=== PATIENT | female | born 1955 | race Caucasian/White ===

== ENCOUNTER → 2018-08-19 | Outpatient (CLI) | payer MEDICARE | END | disposition home or self-care (01) | LOC: RAH 10:25 | PROVIDERS: ATTEND Physical Medicine & Rehabilitation | DX: R60.0 Localized edema (principal); N88.8 Other specified noninflammatory disorders of cervix uteri; D49.9 Neoplasm of unspecified behavior of unspecified site | CPT/HCPCS: 72195 ==

== ENCOUNTER → 2018-09-21 | Outpatient (CLI) | payer MEDICARE | END | disposition home or self-care (01) | LOC: RAH 09:14 | PROVIDERS: ATTEND Physical Medicine & Rehabilitation | DX: M48.07 Spinal stenosis, lumbosacral region (principal); M47.896 Other spondylosis, lumbar region | CPT/HCPCS: 72114 ==

== ENCOUNTER → 2019-09-21 | Outpatient (CLI) | payer MEDICARE | END | disposition home or self-care (01) | LOC: RAH 14:38 | PROVIDERS: ATTEND Internal Medicine | DX: N63.11 Unspecified lump in the right breast, upper outer quadrant (principal); R92.8 Other abnormal and inconclusive findings on diagnostic imaging of breast | CPT/HCPCS: 76641; 77066 ==

== ENCOUNTER → 2022-02-04 | Outpatient (CLI) | payer MEDICARE | END | disposition home or self-care (01) | LOC: RAH 10:51 | PROVIDERS: ATTEND Obstetrics & Gynecology | DX: R92.2 Inconclusive mammogram (principal); Z85.3 Personal history of malignant neoplasm of breast | CPT/HCPCS: 77066 ==

== ENCOUNTER → 2023-05-02 | Outpatient (CLI) | payer MEDICARE | END | disposition home or self-care (01) | LOC: RAH 10:56 | PROVIDERS: ATTEND Student in an Organized Health Care Education/Training Program | DX: Z12.31 Encounter for screening mammogram for malignant neoplasm of breast (principal) | CPT/HCPCS: 77067 ==

== ENCOUNTER → 2024-06-08 | Outpatient (CLI) | payer MEDICARE | END | disposition home or self-care (01) | LOC: RAH 09:26 | PROVIDERS: ATTEND Student in an Organized Health Care Education/Training Program | DX: Z12.31 Encounter for screening mammogram for malignant neoplasm of breast (principal) | CPT/HCPCS: 77067 ==

== ENCOUNTER → 2025-09-15 | Outpatient (CLI) | payer MEDICARE ==
--- NOTE | 2025-09-15 23:34 | HMCIMG ---
US BILATERAL BREAST COMPLETE Clinical Details: Dense breast. Technique: Sonographic images of the entire bilateral breasts, including the retroareolar regions, were obtained using a linear transducer with appropriate image documentation. Findings: Breasts: The breasts are dense bilaterally. Post-surgical changes are noted in the right breast consistent with previous lumpectomy. No new focal mass, fluid collection, or suspicious lesion is identified in either breast. Bilateral subareolar mild nipple inversion is observed. Axillary Lymph Nodes: Lymph nodes in both axillae demonstrate preserved fatty javi and benign morphology. The largest lymph node measures 15 ??? 10 mm on the right and 5 ??? 6 mm on the left. Solid Masses: No solid masses are detected in either breast. Cystic Masses: No cystic masses are detected. Architectural Distortion: No architectural distortion is observed. Acoustical Shadowing: No acoustical shadowing is noted. Skin: No skin thickening is present. Axillary Adenopathy: No suspicious adenopathy is identified. IMPRESSION: 1. Bilateral dense breasts. Post surgical changes in the right breast. 3. BIRADS-3: Recommend follow up right breast ultrasound in 6 months for post lumpectomy or as clinically indicated. /[place]
== END | disposition home or self-care (01) ==
LOC: RAH 12:51
PROVIDERS: ATTEND Student in an Organized Health Care Education/Training Program
DX: R92.333 Mammographic heterogeneous density, bilateral breasts (principal)